=== PATIENT | male | born 1950 ===

== ENCOUNTER 2018-05-20 06:53 | Emergency (ER) | payer OTHER ==
[~2018-05-20] VITALS: Ht 170.2 cm; Wt 99.8 kg
[2018-05-20] MEDS ORDERED: PLAVIX75 MG (07:13)
[2018-05-20] MEDS ORDERED: METOPROLOL SUCC50 MG (07:13)
[2018-05-20] MEDS ORDERED: PRAVASTATIN SOD40 MG (07:13)
[2018-05-20] MEDS ORDERED: OLMESARTAN-HCT1 EACH (07:14)
[2018-05-20] MEDS ORDERED: TAMS0.4C (07:14)
[2018-05-20] MEDS ORDERED: METFORMIN HCL500 MG (07:15)
[2018-05-20] MEDS ORDERED: ASA81 MG (07:15)
[2018-05-20] MEDS ORDERED: HUMALOG100 UNIT/1 (07:22)
[2018-05-20] MEDS ORDERED: LANTUS SOL100 UNIT/1 (07:22)
[2018-05-20] MEDS ORDERED: TYLENOL EXTRA500 MG PO (21:47)
== END 2018-05-21 09:34 | disposition home or self-care (01) ==
LOC: ER 06:53
DX: N39.0 Urinary tract infection, site not specified (principal); R31.0 Gross hematuria